=== PATIENT | female | born 1945 | race Caucasian/White ===

== ENCOUNTER 2020-05-04 15:19 | Emergency (ER) | payer MEDICARE ==
[~2020-05-04] VITALS: Ht 162.6 cm; Wt 68.0 kg
[2020-05-04 18:09] LABS: BASOPHILS % 0.4 % (0.0-2.0); EOSINOPHILS % 2.5 % (0.0-5.0); HEMATOCRIT. 38.7 % (36.0-48.0); HEMOGLOBIN. 12.9 g/dL (12.0-16.0); LYMPHOCYTES % 27.2 % (20.0-50.0); MEAN CORPUSCULAR HEMOGLOBIN 30.2 pg (28.0-32.0); MEAN CORPUSCULAR VOLUME 90.6 fL (81.0-99.0); MEAN PLATELET VOLUME 10.1 fl (7.4-10.4); MONOCYTES % 5.6 % (2.0-8.0); NEUTROPHILS % 64.3 % (40.0-76.0); PLATELET 200 x1000/uL (130-400); RED BLOOD CELL COUNT 4.27 mill/uL (4.2-5.4); RED CELL DISTRIBUTION WIDTH 13.4 % (11.6-14.6)
[2020-05-04 18:21] LABS: CHLORIDE 108 mEq/L (98-107)
[2020-05-04 20:24] VITALS: BP 159/77
== END 2020-05-04 20:57 | disposition home or self-care (01) ==
LOC: ER 15:36
DX: R55 Syncope and collapse (principal); G93.89 Other specified disorders of brain; I44.0 Atrioventricular block, first degree; E11.9 Type 2 diabetes mellitus without complications; I10 Essential (primary) hypertension; Z98.2 Presence of cerebrospinal fluid drainage device
CPT/HCPCS: 36415; 71045; 80048; 84484; 85025; 93005; 99285